=== PATIENT | male | born 1945 | race Caucasian/White ===

== ENCOUNTER → 2019-01-22 | Outpatient (CLI) | payer MEDICARE, OTHER | LOC: EDBD → LB.COAG 09:05 | PROVIDERS: ATTEND Family Medicine | DX: I48.91 Unspecified atrial fibrillation (principal); Z79.01 Long term (current) use of anticoagulants | CPT/HCPCS: 85610 ==

== ENCOUNTER → 2019-02-20 | Outpatient (CLI) | payer MEDICARE, OTHER | LOC: EDBD → LB.COAG 09:30 | PROVIDERS: ATTEND Family Medicine | DX: Z51.81 Encounter for therapeutic drug level monitoring (principal); I48.91 Unspecified atrial fibrillation; Z79.01 Long term (current) use of anticoagulants | CPT/HCPCS: 85610 ==

== ENCOUNTER 2021-07-29 19:18 | Emergency (ER) | payer MEDICARE ==
[2021-07-29] MEDS ORDERED: traMADol 50 MG Tab ONE (20:00)
[2021-07-29] MEDS: traMADol 50 MG Tab PO ONE (20:36)
== END 2021-07-29 20:43 | disposition home or self-care (01) ==
LOC: LB.ED 19:18
DX: M25.561 Pain in right knee (principal); Z88.8 Allergy status to other drugs, medicaments and biological substances
CPT/HCPCS: 99281; 99283; A9270-GY

== ENCOUNTER 2023-10-30 14:29 | Inpatient (IN) | payer MEDICARE ==
[2023-10-30] MEDS ORDERED: Albuterol/Ipratropium 3.0-0.5 MG/3 ML Neb Soln ONE (14:30)
[2023-10-30] MEDS ORDERED: Sodium Chloride 0.9% 10 ML Syringe FLUSH PRN (14:37)
[2023-10-30] MEDS ORDERED: Albuterol/Ipratropium 3.0-0.5 MG/3 ML Neb Soln NEB SCH (14:45)
[2023-10-30] MEDS: Albuterol/Ipratropium 3.0-0.5 MG/3 ML Neb Soln NEB SCH (14:52)
[2023-10-30 15:01] LABS: HEMATOCRIT 42.7 % (40.0-54.0); HEMOGLOBIN 14.8 g/dL (13.0-18.0); MEAN CORPUSCULAR HEMOGLOBIN 31.8 pg (27.0-32.0); MEAN CORPUSCULAR HGB CONC 34.7 g/dL (31.0-35.0); MEAN PLATELET VOLUME 9.5 fL (6.0-10.0); RED BLOOD CELL COUNT 4.66 M/uL (4.50-6.50); RED CELL DISTRIBUTION WIDTH 16.1 % (11.0-16.0); WHITE BLOOD CELL COUNT,WBC 12.2 K/uL (4.0-11.0)
[2023-10-30 15:22] LABS: ANION GAP 14.2 mmol/L (5.0-15.0); BUN/CREATININE RATIO 17.4 (6-25); CALCIUM 8.9 mg/dL (8.5-10.1); CARBON DIOXIDE,CO2 26.8 mmol/L (21.0-32.0); CREATININE 1.67 mg/dL (0.70-1.30); EST CRCL DRUG DOSING (CG) 38.83 mL/min; MAGNESIUM 1.2 mg/dL (1.8-2.4)
[2023-10-30 15:40] LABS: INFLUENZA A NAA NEGATIVE (NEGATIVE); INFLUENZA B NAA NEGATIVE (NEGATIVE); RESPIRATORY SYNCYTIAL VIR NAA NEGATIVE (NEGATIVE)
[2023-10-30 15:42] LABS: CORONAVIRUS COVID-19 NAA NEGATIVE (NEGATIVE)
[2023-10-30] MEDS: Sodium Chloride 0.9% 50 ML SDV FLUSH SCH (16:32)
[2023-10-30] MEDS: Iodixanol 652 MG/ML 100 ML Bottle IV PRN (16:32)
[2023-10-30] MEDS: Sodium Chloride 0.9% 1,000 ML IV SCH ×2 (17:19→20:49)
[2023-10-30] MEDS: Trospium 20 MG Tab PO SCH (20:49)
[2023-10-31] MEDS: Albuterol/Ipratropium 3.0-0.5 MG/3 ML Neb Soln NEB PRN (00:10)
[2023-10-31] MEDS: Metoprolol Tartrate 5 MG/5 ML SDV IVPUSH ONE ×3 (00:58→19:01)
[2023-10-31] MEDS: Digoxin 125 MCG Tab PO SCH (07:38)
[2023-10-31] MEDS: Metoprolol Succinate 50 MG Tab.ER PO SCH (07:39)
[2023-10-31] MEDS: Simvastatin 40 MG Tab PO SCH (07:39)
[2023-10-31] MEDS: Hydrochlorothiazide 25 MG Tab PO SCH (07:39)
[2023-10-31] MEDS: amLODIPine 5 MG Tab PO SCH (07:39)
[2023-10-31] MEDS: Potassium Chloride 20 MEQ Tab.ER PO SCH (07:40)
[2023-10-31] MEDS ORDERED: Warfarin 5 MG Tab PO SCH (08:00)
[2023-10-31 08:08] LABS: INR 1.9 (1.0-3.5)
[2023-10-31 08:12] LABS: ANION GAP 13.7 mmol/L (5.0-15.0); BUN/CREATININE RATIO 14.5 (6-25); CALCIUM 8.6 mg/dL (8.5-10.1); CARBON DIOXIDE,CO2 26.2 mmol/L (21.0-32.0); CREATININE 1.66 mg/dL (0.70-1.30); EST CRCL DRUG DOSING (CG) 39.06 mL/min; MAGNESIUM 1.7 mg/dL (1.8-2.4); POTASSIUM,K 3.9 mmol/L (3.5-5.1)
[2023-10-31 08:18] LABS: PROTHROMBIN TIME 19.3 sec (9.0-11.5)
[2023-10-31] MEDS: Warfarin 2 MG Tab PO ONE (10:42)
[2023-10-31 13:39] LABS: BASE EXCESS ARTERIAL -1.8 (-2-2); BICARBONATE,ARTERIAL 21.8 mmol/L (22-26); O2 SATURATION ARTERIAL 79.9 % (95-98); PCO2 ARTERIAL 29.8 mmHg (35-45)
[2023-10-31 13:41] LABS: PO2 ARTERIAL 40.4 mmHg (80-105)
[2023-10-31] MEDS: Digoxin 125 MCG Tab PO ONE (14:51)
[2023-10-31] MEDS: Metoclopramide 10 MG/2 ML SDV IVPUSH ONE (14:51)
[2023-10-31] MEDS: Valsartan 40 MG Tab PO SCH (14:52)
[2023-10-31] MEDS: Furosemide 20 MG/2 ML VIAL IVPUSH ONE (16:34)
[2023-10-31] MEDS: Warfarin 5 MG Tab PO SCH (19:01)
[2023-10-31] MEDS: methylPREDNISolone Sodium Succinate 40 MG/1 ML SDV IVPUSH SCH (19:01)
[2023-11-01 09:32] LABS: HEMATOCRIT 42.3 % (40.0-54.0); HEMOGLOBIN 14.4 g/dL (13.0-18.0); MEAN CORPUSCULAR HEMOGLOBIN 31.1 pg (27.0-32.0); MEAN PLATELET VOLUME 9.4 fL (6.0-10.0); RED BLOOD CELL COUNT 4.63 M/uL (4.50-6.50); RED CELL DISTRIBUTION WIDTH 15.7 % (11.0-16.0); WHITE BLOOD CELL COUNT,WBC 11.2 K/uL (4.0-11.0)
[2023-11-01 10:27] LABS: BUN/CREATININE RATIO 16.3 (6-25); CALCIUM 9.1 mg/dL (8.5-10.1); CARBON DIOXIDE,CO2 28.8 mmol/L (21.0-32.0); CREATININE 1.47 mg/dL (0.70-1.30); EST CRCL DRUG DOSING (CG) 44.11 mL/min; TROPONIN I HIGH SENSITIVITY 23.4 pg/ml (<=60.4)
[2023-11-01 10:32] LABS: MAGNESIUM 1.9 mg/dL (1.8-2.4)
[2023-11-01] MEDS: Furosemide 20 MG Tab PO SCH (11:21)
[2023-11-01 11:41] LABS: ANION GAP 12.3 mmol/L (5.0-15.0); POTASSIUM,K 4.1 mmol/L (3.5-5.1)
[2023-11-01] MEDS: Furosemide 40 MG Tab PO SCH (14:17)
[2023-11-01] MEDS: Albuterol/Ipratropium 3.0-0.5 MG/3 ML Neb Soln NEB SCH (14:50)
[2023-11-01] MEDS: Morphine 4 MG/ML VIAL IVPUSH PRN (16:19)
[2023-11-01] MEDS: Metoprolol Tartrate 5 MG/5 ML SDV IVPUSH ONE (18:38)
[2023-11-01] MEDS: Omeprazole 20 MG Cap.CR PO SCH (19:43)
[2023-11-02] MEDS: methylPREDNISolone Sodium Succinate 40 MG/1 ML SDV ONE (05:55)
[2023-11-02] MEDS: Metoprolol Tartrate 100 MG Tab PO SCH (07:40)
[2023-11-02 08:11] LABS: HEMOGLOBIN 14.4 g/dL (13.0-18.0); MEAN CORPUSCULAR HEMOGLOBIN 30.6 pg (27.0-32.0); MEAN CORPUSCULAR HGB CONC 33.5 g/dL (31.0-35.0); MEAN PLATELET VOLUME 9.7 fL (6.0-10.0); RED BLOOD CELL COUNT 4.71 M/uL (4.50-6.50); RED CELL DISTRIBUTION WIDTH 15.7 % (11.0-16.0)
[2023-11-02 08:12] LABS: WHITE BLOOD CELL COUNT,WBC 20.9 K/uL (4.0-11.0)
[2023-11-02 08:31] LABS: ANION GAP 16.4 mmol/L (5.0-15.0); BUN/CREATININE RATIO 21.7 (6-25); CALCIUM 9.4 mg/dL (8.5-10.1); CARBON DIOXIDE,CO2 26.3 mmol/L (21.0-32.0); CREATININE 1.57 mg/dL (0.70-1.30); DIGOXIN 0.8 ng/mL (0.5-2.00); EST CRCL DRUG DOSING (CG) 41.3 mL/min; MAGNESIUM 1.7 mg/dL (1.8-2.4); POTASSIUM,K 3.7 mmol/L (3.5-5.1)
[2023-11-02] MEDS: Magnesium Sulfate/Water 50 ML IV ONE (10:29)
[2023-11-02] MEDS: Amoxicillin/Clavulanate K 875-125 MG Tab PO ONE (10:29)
[2023-11-02] MEDS: Amoxicillin/Clavulanate K 875-125 MG Tab PO SCH (20:07)
[2023-11-02] MEDS: Magnesium Sulfate/Water 2 GM in Premix Bag 1 BAG IV ONE (20:22)
[2023-11-03 08:36] LABS: ANION GAP 12.4 mmol/L (5.0-15.0); CALCIUM 9.5 mg/dL (8.5-10.1); CARBON DIOXIDE,CO2 28.7 mmol/L (21.0-32.0); CREATININE 1.64 mg/dL (0.70-1.30); EST CRCL DRUG DOSING (CG) 39.54 mL/min; POTASSIUM,K 4.1 mmol/L (3.5-5.1)
[2023-11-03 08:45] LABS: HEMATOCRIT 42.9 % (40.0-54.0); HEMOGLOBIN 14.7 g/dL (13.0-18.0); MEAN CORPUSCULAR HEMOGLOBIN 31.3 pg (27.0-32.0); MEAN CORPUSCULAR HGB CONC 34.3 g/dL (31.0-35.0); MEAN CORPUSCULAR VOLUME 91 fL (76-96); MEAN PLATELET VOLUME 10.1 fL (6.0-10.0); PLATELET COUNT,PLT 207 K/uL (150-400); RED CELL DISTRIBUTION WIDTH 15.8 % (11.0-16.0)
[2023-11-03 09:01] LABS: WHITE BLOOD CELL COUNT,WBC 21.1 K/uL (4.0-11.0)
[2023-11-03 09:29] LABS: PLATELET COUNT ESTIMATE ADEQUATE
[2023-11-04 07:28] LABS: BASOPHILS ABSOLUTE AUTO 0.03 K/uL (0.02-0.10); BASOPHILS PERCENT AUTO 0.2 % (0.0-0.5); EOSINOPHILS ABSOLUTE AUTO 0.01 K/uL (0.04-0.40); EOSINOPHILS PERCENT AUTO 0.1 % (1.0-5.0); HEMATOCRIT 39.6 % (40.0-54.0); HEMOGLOBIN 13.3 g/dL (13.0-18.0); LYMPHOCYTES ABSOLUTE AUTO 1.91 K/uL (1.50-4.00); LYMPHOCYTES PERCENT AUTO 11.3 % (20.0-40.0); MEAN CORPUSCULAR HEMOGLOBIN 30.7 pg (27.0-32.0); MEAN CORPUSCULAR HGB CONC 33.6 g/dL (31.0-35.0); MEAN CORPUSCULAR VOLUME 92 fL (76-96); MEAN PLATELET VOLUME 9.2 fL (6.0-10.0); MONOCYTES ABSOLUTE AUTO 0.91 K/uL (0.20-0.80); MONOCYTES PERCENT AUTO 5.4 % (3.0-10.0); NEUTROPHILS ABSOLUTE AUTO 13.98 K/uL (2.00-7.50); PLATELET COUNT,PLT 188 K/uL (150-400); RED BLOOD CELL COUNT 4.33 M/uL (4.50-6.50); WHITE BLOOD CELL COUNT,WBC 16.8 K/uL (4.0-11.0)
[2023-11-04 07:41] LABS: ANION GAP 12.7 mmol/L (5.0-15.0); BUN/CREATININE RATIO 28.3 (6-25); CALCIUM 8.8 mg/dL (8.5-10.1); CARBON DIOXIDE,CO2 28.1 mmol/L (21.0-32.0); CREATININE 1.45 mg/dL (0.70-1.30); EST CRCL DRUG DOSING (CG) 44.72 mL/min; POTASSIUM,K 3.8 mmol/L (3.5-5.1)
[2023-11-04] MEDS: Furosemide 20 MG Tab PO SCH ×2 (08:06→16:16)
[2023-11-04] MEDS: predniSONE 20 MG Tab PO SCH (08:07)
[2023-11-04 09:43] LABS: INR 11.4 (1.0-3.5)
[2023-11-04] MEDS: Phytonadione 5 MG Tab PO ONE (09:53)
[2023-11-04] MEDS: Budesonide 0.5 MG/2 ML Neb Susp NEB SCH (13:00)
[2023-11-04] MEDS: Furosemide 20 MG Tab PO ONE (17:44)
[2023-11-05 08:44] LABS: BASOPHILS ABSOLUTE AUTO 0.02 K/uL (0.02-0.10); BASOPHILS PERCENT AUTO 0.1 % (0.0-0.5); EOSINOPHILS PERCENT AUTO 0.6 % (1.0-5.0); HEMATOCRIT 42.7 % (40.0-54.0); HEMOGLOBIN 14.5 g/dL (13.0-18.0); LYMPHOCYTES ABSOLUTE AUTO 2.01 K/uL (1.50-4.00); LYMPHOCYTES PERCENT AUTO 12.8 % (20.0-40.0); MEAN CORPUSCULAR HEMOGLOBIN 30.9 pg (27.0-32.0); MEAN CORPUSCULAR VOLUME 91 fL (76-96); MEAN PLATELET VOLUME 9.4 fL (6.0-10.0); MONOCYTES ABSOLUTE AUTO 0.69 K/uL (0.20-0.80); MONOCYTES PERCENT AUTO 4.4 % (3.0-10.0); NEUTROPHILS ABSOLUTE AUTO 12.85 K/uL (2.00-7.50); NEUTROPHILS PERCENT AUTO 82.1 % (45.0-70.0); PLATELET COUNT,PLT 226 K/uL (150-400); RED BLOOD CELL COUNT 4.69 M/uL (4.50-6.50); RED CELL DISTRIBUTION WIDTH 15.9 % (11.0-16.0); WHITE BLOOD CELL COUNT,WBC 15.7 K/uL (4.0-11.0)
[2023-11-05 08:59] LABS: INR 2.8 (1.0-3.5)
[2023-11-05 09:09] LABS: PROTHROMBIN TIME 27.2 sec (9.0-11.5)
[2023-11-05 09:22] LABS: A/G RATIO 0.6 (0.8-2.0); ALBUMIN 2.5 g/dL (3.4-5.0); ANION GAP 10.5 mmol/L (5.0-15.0); BILIRUBIN TOTAL 1.3 mg/dL (0.0-1.0); BUN/CREATININE RATIO 24.3 (6-25); CALCIUM 9.1 mg/dL (8.5-10.1); CARBON DIOXIDE,CO2 31.9 mmol/L (21.0-32.0); CREATININE 1.52 mg/dL (0.70-1.30); EST CRCL DRUG DOSING (CG) 42.66 mL/min; POTASSIUM,K 3.4 mmol/L (3.5-5.1); PROTEIN TOTAL,TP 6.6 g/dL (6.4-8.2)
[2023-11-05] MEDS: Furosemide 20 MG Tab PO ONE ×2 (10:17→17:36)
[2023-11-05] MEDS: Warfarin 5 MG Tab ONE (17:37)
[2023-11-05] MEDS ORDERED: Warfarin 5 MG Tab PO SCH (18:00)
[2023-11-06 08:30] LABS: BASOPHILS ABSOLUTE AUTO 0.03 K/uL (0.02-0.10); BASOPHILS PERCENT AUTO 0.2 % (0.0-0.5); EOSINOPHILS ABSOLUTE AUTO 0.16 K/uL (0.04-0.40); EOSINOPHILS PERCENT AUTO 0.9 % (1.0-5.0); HEMATOCRIT 43.3 % (40.0-54.0); HEMOGLOBIN 14.6 g/dL (13.0-18.0); LYMPHOCYTES ABSOLUTE AUTO 2.05 K/uL (1.50-4.00); LYMPHOCYTES PERCENT AUTO 11.8 % (20.0-40.0); MEAN CORPUSCULAR HEMOGLOBIN 30.9 pg (27.0-32.0); MEAN CORPUSCULAR HGB CONC 33.7 g/dL (31.0-35.0); MEAN CORPUSCULAR VOLUME 92 fL (76-96); MEAN PLATELET VOLUME 9.2 fL (6.0-10.0); MONOCYTES ABSOLUTE AUTO 0.61 K/uL (0.20-0.80); MONOCYTES PERCENT AUTO 3.5 % (3.0-10.0); NEUTROPHILS ABSOLUTE AUTO 14.49 K/uL (2.00-7.50); NEUTROPHILS PERCENT AUTO 83.6 % (45.0-70.0); PLATELET COUNT,PLT 227 K/uL (150-400); RED BLOOD CELL COUNT 4.72 M/uL (4.50-6.50); RED CELL DISTRIBUTION WIDTH 16.4 % (11.0-16.0); WHITE BLOOD CELL COUNT,WBC 17.3 K/uL (4.0-11.0)
[2023-11-06 08:43] LABS: INR 1.8 (1.0-3.5)
[2023-11-06 08:48] LABS: PROTHROMBIN TIME 18.2 sec (9.0-11.5)
[2023-11-06 08:54] LABS: ANION GAP 11.1 mmol/L (5.0-15.0); BUN/CREATININE RATIO 22.8 (6-25); CALCIUM 8.9 mg/dL (8.5-10.1); CREATININE 1.62 mg/dL (0.70-1.30); EST CRCL DRUG DOSING (CG) 40.03 mL/min; POTASSIUM,K 3.1 mmol/L (3.5-5.1)
[2023-11-06] MEDS: Potassium Chloride 20 MEQ Tab.ER PO ONE (09:30)
[2023-11-06] MEDS: Warfarin 5 MG Tab PO SCH (17:44)
[2023-11-07 09:08] LABS: BASOPHILS ABSOLUTE AUTO 0.02 K/uL (0.02-0.10); BASOPHILS PERCENT AUTO 0.1 % (0.0-0.5); EOSINOPHILS ABSOLUTE AUTO 0.15 K/uL (0.04-0.40); EOSINOPHILS PERCENT AUTO 0.9 % (1.0-5.0); HEMATOCRIT 44.6 % (40.0-54.0); HEMOGLOBIN 14.9 g/dL (13.0-18.0); LYMPHOCYTES PERCENT AUTO 10.7 % (20.0-40.0); MEAN CORPUSCULAR HEMOGLOBIN 30.9 pg (27.0-32.0); MEAN CORPUSCULAR HGB CONC 33.4 g/dL (31.0-35.0); MEAN CORPUSCULAR VOLUME 93 fL (76-96); MEAN PLATELET VOLUME 9.4 fL (6.0-10.0); MONOCYTES ABSOLUTE AUTO 0.63 K/uL (0.20-0.80); MONOCYTES PERCENT AUTO 3.8 % (3.0-10.0); NEUTROPHILS PERCENT AUTO 84.5 % (45.0-70.0); PLATELET COUNT,PLT 235 K/uL (150-400); RED BLOOD CELL COUNT 4.82 M/uL (4.50-6.50); RED CELL DISTRIBUTION WIDTH 16.5 % (11.0-16.0); WHITE BLOOD CELL COUNT,WBC 16.8 K/uL (4.0-11.0)
[2023-11-07 09:28] LABS: INR 2.1 (1.0-3.5)
[2023-11-07 09:30] LABS: PROTHROMBIN TIME 21.3 sec (9.0-11.5)
[2023-11-07 09:38] LABS: ANION GAP 7.9 mmol/L (5.0-15.0); BUN/CREATININE RATIO 21.1 (6-25); CARBON DIOXIDE,CO2 32.5 mmol/L (21.0-32.0); CREATININE 1.66 mg/dL (0.70-1.30); EST CRCL DRUG DOSING (CG) 39.06 mL/min; POTASSIUM,K 3.4 mmol/L (3.5-5.1)
[2023-11-07] MEDS ORDERED: Furosemide 20 MG Tab PO ONE (16:00)
[2023-11-08 08:06] LABS: BASOPHILS ABSOLUTE AUTO 0.02 K/uL (0.02-0.10); BASOPHILS PERCENT AUTO 0.1 % (0.0-0.5); EOSINOPHILS ABSOLUTE AUTO 0.17 K/uL (0.04-0.40); HEMATOCRIT 44.1 % (40.0-54.0); HEMOGLOBIN 14.9 g/dL (13.0-18.0); LYMPHOCYTES ABSOLUTE AUTO 1.92 K/uL (1.50-4.00); LYMPHOCYTES PERCENT AUTO 11.5 % (20.0-40.0); MEAN CORPUSCULAR HGB CONC 33.8 g/dL (31.0-35.0); MEAN CORPUSCULAR VOLUME 92 fL (76-96); MEAN PLATELET VOLUME 9.1 fL (6.0-10.0); MONOCYTES ABSOLUTE AUTO 0.69 K/uL (0.20-0.80); MONOCYTES PERCENT AUTO 4.1 % (3.0-10.0); NEUTROPHILS ABSOLUTE AUTO 13.88 K/uL (2.00-7.50); NEUTROPHILS PERCENT AUTO 83.3 % (45.0-70.0); PLATELET COUNT,PLT 230 K/uL (150-400); RED CELL DISTRIBUTION WIDTH 16.4 % (11.0-16.0); WHITE BLOOD CELL COUNT,WBC 16.7 K/uL (4.0-11.0)
[2023-11-08 08:34] LABS: BUN/CREATININE RATIO 21.4 (6-25); CALCIUM 9.1 mg/dL (8.5-10.1); CARBON DIOXIDE,CO2 33.9 mmol/L (21.0-32.0); CREATININE 1.59 mg/dL (0.70-1.30); EST CRCL DRUG DOSING (CG) 40.78 mL/min; POTASSIUM,K 3.9 mmol/L (3.5-5.1)
[2023-11-08 08:48] LABS: INR 2.8 (1.0-3.5)
[2023-11-08 08:49] LABS: PROTHROMBIN TIME 27.5 sec (9.0-11.5)
[2023-11-08 13:08] VITALS: BP 114/60; PULSE 71
== END 2023-11-08 13:14 | disposition home or self-care (01) | DRG 291 ==
LOC: LB.ED 14:29 → LB.MS 18:21 → UNDOADMIN 18:21 → LB.MS 10-31 00:45 → UNDOADMIN 10-31 00:45 → LB.MS 10-31 17:30
PROVIDERS: ADMIT Surgery; ATTEND Surgery
PROC: 5A09457 Assistance with Respiratory Ventilation, 24-96 Consecutive Hours, Continuous Positive Airway Pressure (ICD-10-PCS; principal; 2023-10-31)
PROC: 5A0935A Assistance with Respiratory Ventilation, Less than 24 Consecutive Hours, High Flow/Velocity Cannula (ICD-10-PCS; 2023-11-01)
PROC: 5A0935A Assistance with Respiratory Ventilation, Less than 24 Consecutive Hours, High Flow/Velocity Cannula (ICD-10-PCS; 2023-11-02)
PROC: 5A0935A Assistance with Respiratory Ventilation, Less than 24 Consecutive Hours, High Flow/Velocity Cannula (ICD-10-PCS; 2023-11-07)
DX: I13.0 Hypertensive heart and chronic kidney disease with heart failure and stage 1 through stage 4 chronic kidney disease, or unspecified chronic kidney disease (principal); I10 Essential (primary) hypertension; Z79.899 Other long term (current) drug therapy; J96.01 Acute respiratory failure with hypoxia; J44.0 Chronic obstructive pulmonary disease with (acute) lower respiratory infection; J44.1 Chronic obstructive pulmonary disease with (acute) exacerbation; I48.91 Unspecified atrial fibrillation; N18.9 Chronic kidney disease, unspecified; J43.9 Emphysema, unspecified; E83.42 Hypomagnesemia; I50.9 Heart failure, unspecified; K21.9 Gastro-esophageal reflux disease without esophagitis; Z85.118 Personal history of other malignant neoplasm of bronchus and lung; Z98.42 Cataract extraction status, left eye; Z98.41 Cataract extraction status, right eye; Z90.89 Acquired absence of other organs; Z79.01 Long term (current) use of anticoagulants; Z88.8 Allergy status to other drugs, medicaments and biological substances
CPT/HCPCS: 0241U; 36415; 36600; 71045; 71250; 71275; 80048; 80053; 80162; 82803; 83605; 83735; 83880; 84145; 84484; 85025; 85027; 85379; 85610; 93005; 93010; 94640; 94660; 96361; 96365; 99222; 99232; 99239; 99285-25; A9270-GY; J1940; J2270; J2765; J2919; J3475; J3490; J7030; J7512; J7620

== ENCOUNTER 2023-11-13 21:55 | Inpatient (IN) | payer MEDICARE ==
[2023-11-13] MEDS: Albuterol/Ipratropium 3.0-0.5 MG/3 ML Neb Soln NEB SCH (22:40)
[2023-11-13] MEDS: Albuterol 0.083% 2.5 MG/3 ML Neb Soln NEB ONE (23:06)
[2023-11-13] MEDS: Albuterol 0.083% 2.5 MG/3 ML Neb Soln ONE (23:09)
[2023-11-13] MEDS: Budesonide 0.5 MG/2 ML Neb Susp ONE (23:09)
[2023-11-13 23:11] LABS: BASOPHILS ABSOLUTE AUTO 0.04 K/uL (0.02-0.10); BASOPHILS PERCENT AUTO 0.2 % (0.0-0.5); EOSINOPHILS ABSOLUTE AUTO 0.03 K/uL (0.04-0.40); EOSINOPHILS PERCENT AUTO 0.2 % (1.0-5.0); HEMATOCRIT 35.9 % (40.0-54.0); HEMOGLOBIN 12.3 g/dL (13.0-18.0); LYMPHOCYTES ABSOLUTE AUTO 0.84 K/uL (1.50-4.00); LYMPHOCYTES PERCENT AUTO 4.5 % (20.0-40.0); MEAN CORPUSCULAR HEMOGLOBIN 31.2 pg (27.0-32.0); MEAN CORPUSCULAR HGB CONC 34.3 g/dL (31.0-35.0); MEAN CORPUSCULAR VOLUME 91 fL (76-96); MEAN PLATELET VOLUME 9.3 fL (6.0-10.0); MONOCYTES PERCENT AUTO 3.2 % (3.0-10.0); NEUTROPHILS ABSOLUTE AUTO 17.13 K/uL (2.00-7.50); NEUTROPHILS PERCENT AUTO 91.9 % (45.0-70.0); PLATELET COUNT,PLT 201 K/uL (150-400); RED BLOOD CELL COUNT 3.94 M/uL (4.50-6.50); RED CELL DISTRIBUTION WIDTH 15.7 % (11.0-16.0)
[2023-11-13 23:13] LABS: WHITE BLOOD CELL COUNT,WBC 18.6 K/uL (4.0-11.0)
[2023-11-13] MEDS: Budesonide 0.5 MG/2 ML Neb Susp NEB ONE (23:18)
[2023-11-13 23:20] LABS: INR 3.1 (1.0-3.5)
[2023-11-13 23:31] LABS: A/G RATIO 0.5 (0.8-2.0); BILIRUBIN TOTAL 1.3 mg/dL (0.0-1.0); BUN/CREATININE RATIO 17.7 (6-25); CALCIUM 8.3 mg/dL (8.5-10.1); CARBON DIOXIDE,CO2 26.1 mmol/L (21.0-32.0); CREATININE 1.98 mg/dL (0.70-1.30); EST CRCL DRUG DOSING (CG) 32.75 mL/min; MAGNESIUM 1.4 mg/dL (1.8-2.4); POTASSIUM,K 4.1 mmol/L (3.5-5.1); PROTEIN TOTAL,TP 6.1 g/dL (6.4-8.2); PROTHROMBIN TIME 30.6 sec (9.0-11.5); TROPONIN I HIGH SENSITIVITY 24.5 pg/ml (<=60.4)
[2023-11-13 23:34] LABS: LACTIC ACID 3.8 mmol/L (0.4-2.0)
[2023-11-13] MEDS: Furosemide 40 MG/4 ML VIAL IVPUSH ONE (23:36)
[2023-11-13] MEDS: Furosemide 40 MG/4 ML VIAL ONE (23:40)
[2023-11-13 23:41] LABS: INFLUENZA A NAA NEGATIVE (NEGATIVE); INFLUENZA B NAA NEGATIVE (NEGATIVE); RESPIRATORY SYNCYTIAL VIR NAA NEGATIVE (NEGATIVE)
[2023-11-13 23:42] LABS: CORONAVIRUS COVID-19 NAA NEGATIVE (NEGATIVE)
[2023-11-14] MEDS: cefTRIAXone 2 GM Vial IVPUSH SCH (01:04)
[2023-11-14] MEDS: Albuterol/Ipratropium 3.0-0.5 MG/3 ML Neb Soln NEB SCH (01:06)
[2023-11-14] MEDS ORDERED: POTASSIUM CHLORIDE 8 MEQ PO SCH (08:00)
[2023-11-14] MEDS ORDERED: Furosemide 20 MG/2 ML VIAL IVPUSH SCH (08:00)
[2023-11-14] MEDS ORDERED: Metoprolol Succinate 100 MG Tab.ER PO SCH (08:00)
[2023-11-14] MEDS ORDERED: HYDROCHLOROTHIAZIDE PO SCH (08:00)
[2023-11-14] MEDS ORDERED: VALSARTAN PO SCH (08:00)
[2023-11-14] MEDS ORDERED: Furosemide 40 MG/4 ML VIAL IVPUSH SCH (08:00)
[2023-11-14] MEDS ORDERED: [UNRECOGNIZED DRUG - OTHER] PO SCH (08:00)
[2023-11-14] MEDS: Furosemide 40 MG/4 ML VIAL IVPUSH SCH (08:07)
[2023-11-14] MEDS: Digoxin 125 MCG Tab PO SCH (08:07)
[2023-11-14] MEDS: Simvastatin 40 MG Tab PO SCH (08:08)
[2023-11-14] MEDS: Potassium Chloride 10 MEQ Tab.ER PO SCH (08:08)
[2023-11-14] MEDS: Trospium 20 MG Tab PO SCH (08:08)
[2023-11-14] MEDS: Metoprolol Succinate 100 MG Tab.ER PO SCH (08:08)
[2023-11-14] MEDS: Hydrochlorothiazide 25 MG Tab PO SCH (08:08)
[2023-11-14] MEDS: amLODIPine 5 MG Tab PO SCH (08:08)
[2023-11-14 09:00] LABS: ANION GAP 12.1 mmol/L (5.0-15.0); BUN/CREATININE RATIO 22.1 (6-25); CALCIUM 8.2 mg/dL (8.5-10.1); CARBON DIOXIDE,CO2 27.3 mmol/L (21.0-32.0); CREATININE 1.54 mg/dL (0.70-1.30); EST CRCL DRUG DOSING (CG) 42.1 mL/min; MAGNESIUM 1.9 mg/dL (1.8-2.4); POTASSIUM,K 3.4 mmol/L (3.5-5.1)
[2023-11-14 09:03] LABS: HEMATOCRIT 33.7 % (40.0-54.0); HEMOGLOBIN 11.5 g/dL (13.0-18.0); MEAN CORPUSCULAR HEMOGLOBIN 30.9 pg (27.0-32.0); MEAN CORPUSCULAR HGB CONC 34.1 g/dL (31.0-35.0); MEAN PLATELET VOLUME 9.6 fL (6.0-10.0); RED BLOOD CELL COUNT 3.72 M/uL (4.50-6.50); RED CELL DISTRIBUTION WIDTH 15.6 % (11.0-16.0)
[2023-11-14] MEDS: Warfarin 5 MG Tab PO SCH ×2 (10:50→16:04)
[2023-11-15 09:38] LABS: HEMATOCRIT 38.1 % (40.0-54.0); HEMOGLOBIN 12.8 g/dL (13.0-18.0); MEAN CORPUSCULAR HEMOGLOBIN 30.9 pg (27.0-32.0); MEAN CORPUSCULAR HGB CONC 33.6 g/dL (31.0-35.0); MEAN PLATELET VOLUME 9.7 fL (6.0-10.0); RED BLOOD CELL COUNT 4.14 M/uL (4.50-6.50); RED CELL DISTRIBUTION WIDTH 16.1 % (11.0-16.0); WHITE BLOOD CELL COUNT,WBC 15.1 K/uL (4.0-11.0)
[2023-11-15 10:06] LABS: ANION GAP 11.6 mmol/L (5.0-15.0); BUN/CREATININE RATIO 17.8 (6-25); CARBON DIOXIDE,CO2 30.8 mmol/L (21.0-32.0); CREATININE 1.52 mg/dL (0.70-1.30); EST CRCL DRUG DOSING (CG) 42.66 mL/min; MAGNESIUM 1.6 mg/dL (1.8-2.4); POTASSIUM,K 3.4 mmol/L (3.5-5.1)
[2023-11-15] MEDS: Bumetanide 1 MG/4 ML MDV IVPUSH ONE (10:14)
[2023-11-15] MEDS: methylPREDNISolone Sodium Succinate 40 MG/1 ML SDV IVPUSH SCH (12:18)
[2023-11-15] MEDS: Budesonide 0.5 MG/2 ML Neb Susp NEB ONE (12:35)
[2023-11-15 13:14] LABS: PCO2 ARTERIAL 32.3 mmHg (35-45)
[2023-11-15 13:15] LABS: BASE EXCESS ARTERIAL 2.4 (-2-2); BICARBONATE,ARTERIAL 25.5 mmol/L (22-26)
[2023-11-15 13:19] LABS: PO2 ARTERIAL 47.1 mmHg (80-105)
[2023-11-15 18:37] LABS: O2 SATURATION ARTERIAL 92.8 % (95-98)
[2023-11-15 18:38] LABS: BASE EXCESS ARTERIAL 1.9 (-2-2); BICARBONATE,ARTERIAL 25.2 mmol/L (22-26)
[2023-11-15 18:43] LABS: PO2 ARTERIAL 59.9 mmHg (80-105)
[2023-11-15] MEDS: Budesonide 0.5 MG/2 ML Neb Susp NEB SCH (19:54)
[2023-11-16] MEDS: Valsartan 40 MG Tab PO SCH (07:37)
[2023-11-16] MEDS: Sodium Chloride 0.9% 10 ML Syringe FLUSH PRN (07:37)
[2023-11-16] MEDS: Potassium Chloride 20 MEQ Tab.ER PO SCH (07:40)
[2023-11-16] MEDS: Albuterol/Ipratropium 3.0-0.5 MG/3 ML Neb Soln NEB SCH (09:23)
[2023-11-16] MEDS: Budesonide 0.5 MG/2 ML Neb Susp NEB SCH (09:23)
[2023-11-16 09:28] LABS: BASOPHILS ABSOLUTE AUTO 0.02 K/uL (0.02-0.10); BASOPHILS PERCENT AUTO 0.1 % (0.0-0.5); EOSINOPHILS ABSOLUTE AUTO 0.01 K/uL (0.04-0.40); EOSINOPHILS PERCENT AUTO 0.1 % (1.0-5.0); HEMATOCRIT 37.3 % (40.0-54.0); HEMOGLOBIN 12.7 g/dL (13.0-18.0); LYMPHOCYTES ABSOLUTE AUTO 0.75 K/uL (1.50-4.00); LYMPHOCYTES PERCENT AUTO 4.2 % (20.0-40.0); MEAN CORPUSCULAR HEMOGLOBIN 31.2 pg (27.0-32.0); MEAN CORPUSCULAR VOLUME 92 fL (76-96); MEAN PLATELET VOLUME 9.6 fL (6.0-10.0); MONOCYTES ABSOLUTE AUTO 0.19 K/uL (0.20-0.80); MONOCYTES PERCENT AUTO 1.1 % (3.0-10.0); NEUTROPHILS ABSOLUTE AUTO 16.81 K/uL (2.00-7.50); NEUTROPHILS PERCENT AUTO 94.5 % (45.0-70.0); PLATELET COUNT,PLT 199 K/uL (150-400); RED BLOOD CELL COUNT 4.07 M/uL (4.50-6.50); RED CELL DISTRIBUTION WIDTH 15.6 % (11.0-16.0); WHITE BLOOD CELL COUNT,WBC 17.8 K/uL (4.0-11.0)
[2023-11-16 09:39] LABS: PCO2 ARTERIAL 34.9 mmHg (35-45)
[2023-11-16 09:40] LABS: BASE EXCESS ARTERIAL 0.1 (-2-2); O2 SATURATION ARTERIAL 88.5 % (95-98)
[2023-11-16 09:41] LABS: PROTHROMBIN TIME 39.6 sec (9.0-11.5)
[2023-11-16 09:41] LABS: PO2 ARTERIAL 52.6 mmHg (80-105)
[2023-11-16 09:42] LABS: INR 4.1 (1.0-3.5)
[2023-11-16 09:48] LABS: A/G RATIO 0.4 (0.8-2.0); ANION GAP 13.8 mmol/L (5.0-15.0); BILIRUBIN TOTAL 0.5 mg/dL (0.0-1.0); BUN/CREATININE RATIO 19.9 (6-25); CALCIUM 9.1 mg/dL (8.5-10.1); CARBON DIOXIDE,CO2 28.8 mmol/L (21.0-32.0); CREATININE 1.41 mg/dL (0.70-1.30); EST CRCL DRUG DOSING (CG) 45.99 mL/min; POTASSIUM,K 3.6 mmol/L (3.5-5.1); PROTEIN TOTAL,TP 7.1 g/dL (6.4-8.2)
[2023-11-16 09:53] LABS: BICARBONATE,ARTERIAL 24.1 mmol/L (22-26)
[2023-11-16] MEDS: methylPREDNISolone Sodium Succinate 40 MG/1 ML SDV IVPUSH SCH (12:54)
[2023-11-16] MEDS: Furosemide 40 MG/4 ML VIAL IVPUSH SCH (16:09)
== END 2023-11-16 18:30 | DRG 291 ==
LOC: LB.ED 21:55 → LB.MS 11-14
PROVIDERS: ADMIT Surgery; ATTEND Physician Assistant
PROC: 4A133R1 Monitoring of Arterial Saturation, Peripheral, Percutaneous Approach (ICD-10-PCS; 2023-11-14)
PROC: 5A09357 Assistance with Respiratory Ventilation, Less than 24 Consecutive Hours, Continuous Positive Airway Pressure (ICD-10-PCS; principal; 2023-11-15)
PROC: 5A09357 Assistance with Respiratory Ventilation, Less than 24 Consecutive Hours, Continuous Positive Airway Pressure (ICD-10-PCS; 2023-11-16)
PROC: 5A0935A Assistance with Respiratory Ventilation, Less than 24 Consecutive Hours, High Flow/Velocity Cannula (ICD-10-PCS; 2023-11-16)
DX: I13.0 Hypertensive heart and chronic kidney disease with heart failure and stage 1 through stage 4 chronic kidney disease, or unspecified chronic kidney disease (principal); I50.33 Acute on chronic diastolic (congestive) heart failure; J96.01 Acute respiratory failure with hypoxia; J44.1 Chronic obstructive pulmonary disease with (acute) exacerbation; I10 Essential (primary) hypertension; N17.9 Acute kidney failure, unspecified; C34.90 Malignant neoplasm of unspecified part of unspecified bronchus or lung; I48.91 Unspecified atrial fibrillation; H54.7 Unspecified visual loss; M06.9 Rheumatoid arthritis, unspecified; M19.90 Unspecified osteoarthritis, unspecified site; K21.9 Gastro-esophageal reflux disease without esophagitis; E83.42 Hypomagnesemia; N18.9 Chronic kidney disease, unspecified; Z99.81 Dependence on supplemental oxygen; Z79.899 Other long term (current) drug therapy; Z79.01 Long term (current) use of anticoagulants; Z88.8 Allergy status to other drugs, medicaments and biological substances; Z79.51 Long term (current) use of inhaled steroids; Z98.49 Cataract extraction status, unspecified eye; Z90.89 Acquired absence of other organs; Z98.890 Other specified postprocedural states
CPT/HCPCS: 0241U; 36415; 36600; 51702; 71045; 71250; 80048; 80053; 82803; 83605; 83735; 83880; 84145; 84484; 85025; 85027; 85610; 87040; 93005; 94640; 94660; 96374; 99222; 99232; 99239; 99285; 93010; A0425; A0429; A9270-GY; J0696; J1940; J2919; J3475; J3490; J7620

== ENCOUNTER 2023-12-05 11:30 | Inpatient (IN) | payer MEDICARE ==
[2023-12-05] MEDS ORDERED: Prochlorperazine 10 MG Tab PO PRN (17:28)
[2023-12-05] MEDS ORDERED: Ondansetron 4 MG Tab.DIS PO PRN (17:28)
[2023-12-05 17:42] LABS: HEMATOCRIT 34.4 % (40.0-54.0); HEMOGLOBIN 11.4 g/dL (13.0-18.0); MEAN CORPUSCULAR HEMOGLOBIN 32.4 pg (27.0-32.0); MEAN CORPUSCULAR HGB CONC 33.1 g/dL (31.0-35.0); MEAN PLATELET VOLUME 9.9 fL (6.0-10.0); RED BLOOD CELL COUNT 3.52 M/uL (4.50-6.50); RED CELL DISTRIBUTION WIDTH 19.8 % (11.0-16.0)
[2023-12-05 17:54] LABS: WHITE BLOOD CELL COUNT,WBC 20.9 K/uL (4.0-11.0)
[2023-12-05 17:57] LABS: ANION GAP 6.6 mmol/L (5.0-15.0); BUN/CREATININE RATIO 35.3 (6-25); CALCIUM 8.7 mg/dL (8.5-10.1); CARBON DIOXIDE,CO2 34.3 mmol/L (21.0-32.0); CREATININE 1.33 mg/dL (0.70-1.30); EST CRCL DRUG DOSING (CG) 48.75 mL/min; POTASSIUM,K 3.9 mmol/L (3.5-5.1)
[2023-12-05 18:07] LABS: INR 2.9 (1.0-3.5)
[2023-12-05 18:08] LABS: PROTHROMBIN TIME 28.8 sec (9.0-11.5)
[2023-12-05] MEDS: Potassium Chloride 20 MEQ Tab.ER PO SCH (19:51)
[2023-12-05] MEDS: Trospium 20 MG Tab PO SCH (19:51)
[2023-12-05] MEDS: Simvastatin 40 MG Tab PO SCH (19:51)
[2023-12-06] MEDS ORDERED: VALSARTAN PO SCH (08:00)
[2023-12-06] MEDS ORDERED: PREDNISOLONE 5 MG PO SCH (08:00)
[2023-12-06] MEDS ORDERED: HCTZ PO SCH (08:00)
[2023-12-06] MEDS: Valsartan 40 MG Tab PO SCH (08:42)
[2023-12-06] MEDS: Aspirin 325 MG Tab.EC PO SCH (08:43)
[2023-12-06] MEDS: Digoxin 125 MCG Tab PO SCH (08:43)
[2023-12-06] MEDS: Hydrochlorothiazide 25 MG Tab PO SCH (08:43)
[2023-12-06] MEDS: Insuln Aspart Prot/Insulin Aspart 100 Units/ML 3 ML FlexPen SUBCUT SCH (08:44)
[2023-12-06] MEDS: Metoprolol Succinate 100 MG Tab.ER PO SCH (08:44)
[2023-12-06] MEDS: predniSONE 20 MG Tab PO SCH (08:49)
[2023-12-06] MEDS: amLODIPine 5 MG Tab PO SCH (08:49)
[2023-12-06] MEDS: Tuberculin, PPD 5 Units/0.1 ML 1 ML MDV IDERM ONE (09:27)
[2023-12-06] MEDS ORDERED: Acetaminophen 500 MG Tab PO PRN (09:35)
[2023-12-06 10:28] LABS: COLOR,URINE YELLOW
[2023-12-06 10:29] LABS: APPEARANCE,URINE CLEAR (CLEAR); GLUCOSE,URINE NEGATIVE (NEGATIVE); PH,URINE 6.5 (5.0-8.0); PROTEIN,URINE 100 mg/dL (NEGATIVE)
[2023-12-06 10:30] LABS: BILIRUBIN,URINE NEGATIVE (NEGATIVE); KETONES,URINE NEGATIVE (NEGATIVE); LEUKOCYTE ESTERASE,URINE NEGATIVE (NEGATIVE); NITRITE,URINE NEGATIVE (NEGATIVE); OCCULT BLOOD,URINE TRACE-LYSED (NEGATIVE); UROBILINOGEN,URINE 0.2 E.U./dL (0.2-1.0)
[2023-12-06 10:31] LABS: RBC,URINE 0-5 /HPF; WBC,URINE 0-5 /HPF
[2023-12-06 12:00] LABS: INR 2.2 (1.0-3.5)
[2023-12-06 12:01] LABS: PROTHROMBIN TIME 22.2 sec (9.0-11.5)
[2023-12-06] MEDS: Warfarin 3 MG Tab PO SCH (17:44)
[2023-12-06] MEDS: Triamcinolone Acetonide 0.1% Crm 30 GM Tube TOP SCH (20:09)
[2023-12-06] MEDS: Albuterol/Ipratropium 3.0-0.5 MG/3 ML Neb Soln NEB PRN (20:49)
[2023-12-07 09:17] LABS: HEMATOCRIT 34.9 % (40.0-54.0); HEMOGLOBIN 11.3 g/dL (13.0-18.0); MEAN CORPUSCULAR HEMOGLOBIN 32.2 pg (27.0-32.0); MEAN CORPUSCULAR HGB CONC 32.4 g/dL (31.0-35.0); MEAN PLATELET VOLUME 9.9 fL (6.0-10.0); RED BLOOD CELL COUNT 3.51 M/uL (4.50-6.50); RED CELL DISTRIBUTION WIDTH 20.5 % (11.0-16.0); WHITE BLOOD CELL COUNT,WBC 18.7 K/uL (4.0-11.0)
[2023-12-09 08:56] LABS: PROTHROMBIN TIME 19.8 sec (9.0-11.5)
[2023-12-09] MEDS: Hydrochlorothiazide 25 MG Tab PO SCH (20:48)
[2023-12-10] MEDS: predniSONE 20 MG Tab PO SCH (07:50)
[2023-12-12] MEDS: Carboxymethylcellulose Sodium 0.5% Ophth Soln 15 ML Bottle EYEBOTH PRN (09:30)
[2023-12-17] MEDS ORDERED: predniSONE 20 MG Tab PO SCH (08:00)
[2023-12-24] MEDS ORDERED: predniSONE 10 MG Tab PO SCH (08:00)
[2023-12-31] MEDS ORDERED: predniSONE 20 MG Tab PO SCH (08:00)
[2024-01-07] MEDS ORDERED: predniSONE 10 MG Tab PO SCH (08:00)
[2024-01-14] MEDS ORDERED: predniSONE 5 MG Tab PO SCH (08:00)
[2024-01-21] MEDS ORDERED: predniSONE 5 MG Tab PO SCH (08:00)
== END 2023-12-13 15:01 | disposition home or self-care (01) | DRG 948 ==
LOC: LB.MS 15:00 → UNDOADMIN 15:00
PROVIDERS: ADMIT Surgery; ATTEND Surgery
DX: R53.81 Other malaise (principal); J44.1 Chronic obstructive pulmonary disease with (acute) exacerbation; N18.9 Chronic kidney disease, unspecified; I48.91 Unspecified atrial fibrillation; J43.9 Emphysema, unspecified; M19.90 Unspecified osteoarthritis, unspecified site; K21.9 Gastro-esophageal reflux disease without esophagitis; H54.7 Unspecified visual loss; R73.9 Hyperglycemia, unspecified; I50.9 Heart failure, unspecified; R63.0 Anorexia; D72.829 Elevated white blood cell count, unspecified; Z88.8 Allergy status to other drugs, medicaments and biological substances; Z79.01 Long term (current) use of anticoagulants; Z90.89 Acquired absence of other organs; Z98.49 Cataract extraction status, unspecified eye; Z86.0100 Personal history of colon polyps, unspecified; Z68.26 Body mass index [BMI] 26.0-26.9, adult
CPT/HCPCS: 36415; 71045; 80048; 81001; 82947; 85027; 85610; 86580; 94640; 97110-GP; 97116-GP; 97161-GP; 97165-GO; 97530-GO; 97530-GP; 97535-GO; 99305; 99308; 99316; A9270-GY; J1815-GY; J7512; J7620

== ENCOUNTER 2023-12-16 08:35 | Emergency (ER) | payer MEDICARE ==
[2023-12-16] MEDS: Albuterol/Ipratropium 3.0-0.5 MG/3 ML Neb Soln NEB PRN (08:49)
[2023-12-16 09:04] LABS: BASOPHILS ABSOLUTE AUTO 0.05 K/uL (0.02-0.10); BASOPHILS PERCENT AUTO 0.4 % (0.0-0.5); EOSINOPHILS ABSOLUTE AUTO 0.03 K/uL (0.04-0.40); EOSINOPHILS PERCENT AUTO 0.2 % (1.0-5.0); HEMATOCRIT 34.6 % (40.0-54.0); LYMPHOCYTES ABSOLUTE AUTO 2.79 K/uL (1.50-4.00); LYMPHOCYTES PERCENT AUTO 22.6 % (20.0-40.0); MEAN CORPUSCULAR HEMOGLOBIN 32.5 pg (27.0-32.0); MEAN CORPUSCULAR HGB CONC 31.8 g/dL (31.0-35.0); MEAN CORPUSCULAR VOLUME 102 fL (76-96); MEAN PLATELET VOLUME 9.7 fL (6.0-10.0); MONOCYTES ABSOLUTE AUTO 0.87 K/uL (0.20-0.80); MONOCYTES PERCENT AUTO 7.1 % (3.0-10.0); NEUTROPHILS ABSOLUTE AUTO 8.59 K/uL (2.00-7.50); NEUTROPHILS PERCENT AUTO 69.7 % (45.0-70.0); PLATELET COUNT,PLT 228 K/uL (150-400); RED BLOOD CELL COUNT 3.38 M/uL (4.50-6.50); RED CELL DISTRIBUTION WIDTH 21.5 % (11.0-16.0); WHITE BLOOD CELL COUNT,WBC 12.3 K/uL (4.0-11.0)
[2023-12-16 09:28] LABS: INR 2.3 (1.0-3.5); PTT,PARTIAL THROMBOPLSTIN TIME 24.4 SECONDS (24.4-33.2)
[2023-12-16 09:37] LABS: A/G RATIO 0.6 (0.8-2.0); ALANINE AMINOTRANSFERASE,ALT 99 U/L (12-78); ALBUMIN 2.3 g/dL (3.4-5.0); ALKALINE PHOSPHATASE 102 U/L (46-116); ANION GAP 19.1 mmol/L (5.0-15.0); ASPARTATE AMNIOTRANSFERASE,AST 38 U/L (15-37); BILIRUBIN TOTAL 0.9 mg/dL (0.0-1.0); BLOOD UREA NITROGEN,BUN 40 mg/dL (8-26); CALCIUM 8.5 mg/dL (8.5-10.1); CHLORIDE,CL 104 mmol/L (98-107); CREATININE 1.54 mg/dL (0.70-1.30); ESTIMATED GFR 46 mL/min (>60); GLUCOSE RANDOM 153 mg/dL (74-100); MAGNESIUM 1.5 mg/dL (1.8-2.4); POTASSIUM,K 5.1 mmol/L (3.5-5.1); PRO B-TYPE NATRIUR PEPT,BNPPRO 3612 pg/mL (0-450); PROTEIN TOTAL,TP 6.2 g/dL (6.4-8.2); SODIUM,NA 140 mmol/L (136-145)
[2023-12-16 09:40] LABS: PROTHROMBIN TIME 22.4 sec (9.0-11.5); TROPONIN I HIGH SENSITIVITY 196.9 pg/ml (<=60.4)
[2023-12-16] MEDS: Furosemide 40 MG/4 ML VIAL IVPUSH ONE (09:46)
[2023-12-16] MEDS: Furosemide 40 MG/4 ML VIAL ONE (09:54)
[2023-12-16] MEDS ORDERED: Sodium Chloride 0.9% 10 ML Syringe FLUSH PRN (09:58)
[2023-12-16] MEDS: cefTRIAXone 2 GM in Sodium Chloride 0.9% 100 ML IV ONE (10:25)
[2023-12-16 10:38] LABS: APPEARANCE,URINE CLEAR (CLEAR); BILIRUBIN,URINE NEGATIVE (NEGATIVE); COLOR,URINE YELLOW; GLUCOSE,URINE NEGATIVE (NEGATIVE); KETONES,URINE NEGATIVE (NEGATIVE); NITRITE,URINE NEGATIVE (NEGATIVE); OCCULT BLOOD,URINE NEGATIVE (NEGATIVE); PROTEIN,URINE >=300 mg/dL (NEGATIVE)
[2023-12-16 10:39] LABS: LEUKOCYTE ESTERASE,URINE NEGATIVE (NEGATIVE); RBC,URINE 0-5 /HPF; WBC,URINE NOT SEEN /HPF
[2023-12-16] MEDS: cefTRIAXone 2 GM Vial ONE (11:07)
[2023-12-16] MEDS: Doxycycline 100 MG in Sodium Chloride 0.9% 100 ML IV ONE (11:30)
== END 2023-12-16 12:05 ==
LOC: LB.ED 08:35
DX: A41.9 Sepsis, unspecified organism (principal); I21.4 Non-ST elevation (NSTEMI) myocardial infarction; I11.0 Hypertensive heart disease with heart failure; I50.9 Heart failure, unspecified; Z88.8 Allergy status to other drugs, medicaments and biological substances
CPT/HCPCS: 36415; 51702; 71045; 80053; 81001; 83605; 83735; 83880; 84145; 84484; 85025; 85379; 85610; 85730; 87086; 93005; 93010; 94640; 96365; 96367; 96375; 99285; 99285-25; J0696; J1940; J3490; J7620